=== PATIENT | male | born 1980 | race Caucasian/White ===

== ENCOUNTER → 2020-04-12 10:11 | Outpatient (CLI) | payer BC, SELFPAY ==
[2020-04-13 14:05] LABS: Covid-19 Nasal PCR Sendout Lex Positive
== END ==
PROVIDERS: PCP Family Medicine; Visit Provider Family Medicine
DX: Z20.828 Contact with and (suspected) exposure to other viral communicable diseases (principal); U07.1 COVID-19
CPT/HCPCS: U0004